=== PATIENT | female | born 1980 | race Two or more races ===

== ENCOUNTER 2023-03-28 14:45 | Emergency (ER) | payer MEDICAID, OTHER ==
[~2023-03-28] VITALS: Ht 160 cm; Wt 70.4 kg
[2023-03-28 15:32] VITALS: BP 120/89; PULSE 102; RESP 16; TEMP 97.5; O2SAT 99
== END 2023-03-28 17:30 | disposition home or self-care (01) ==
LOC: ER 14:45
DX: M54.6 Pain in thoracic spine (principal); M79.18 Myalgia, other site
CPT/HCPCS: 72040; 72070